=== PATIENT | female | born 1945 | race Asian ===

== ENCOUNTER 2018-05-03 06:23 | Day surgery (SDC) | payer OTHER ==
[2018-05-03] MEDS ORDERED: ONDANSETRON 4 MG INJ (07:00)
[2018-05-03] MEDS ORDERED: LIDOCAINE 2% (SDV) 5 ML INJ (07:00)
[2018-05-03] MEDS ORDERED: DEXAMETHASONE 4 MG/ML 1 ML INJ (07:00)
[2018-05-03] MEDS ORDERED: SOD CHLORIDE 0.9% 1,000 ML IV (09:00)
[2018-05-03] MEDS ORDERED: CEFAZOLIN 1 GM/50 ML (PMX) 50 ML IVPB (09:00)
[2018-05-03 12:42] LABS: ALANINE AMINOTRANSFERASE 38 IU/L (13-69); ALBUMIN 4.6 g/dl (3.3-4.9); ALBUMIN/GLOBULIN RATIO 1.27; ALKALINE PHOSPHATASE 85 IU/L (42-121); ANION GAP 14 (8-16); ASPARTATE AMINO TRANSFERASE 41 IU/L (15-46); BILIRUBIN,INDIRECT 0.6 mg/dl (0-1.1); BILIRUBIN,TOTAL 0.6 mg/dl (0.2-1.3); CARBON DIOXIDE 26 mmol/L (21-31); CHLORIDE 110 mmol/L (97-110); GLUCOSE 165 mg/dl (70-220); TOTAL PROTEIN 8.2 g/dl (6.1-8.1)
[2018-05-03 12:58] LABS: SODIUM 146 mmol/L (135-144)
[2018-05-03 12:59] LABS: BLOOD UREA NITROGEN 28 mg/dl (7-20); CALCIUM 10.1 mg/dl (8.4-10.2); CREATININE 1.02 mg/dl (0.44-1.00); POTASSIUM 4.3 mmol/L (3.5-5.1)
[2018-05-03] MEDS ORDERED: MEPERIDINE 25 MG INJ IV (13:00)
[2018-05-03] MEDS ORDERED: ALBUTEROL 0.083% (NEB) 2.5 MG/3 ML AMP HHN (13:00)
[2018-05-03] MEDS ORDERED: DIPHENHYDRAMINE 50 MG INJ IV (13:00)
[2018-05-03] MEDS ORDERED: MIDAZOLAM 1 MG/ML 2 ML INJ IV (13:00)
[2018-05-03] MEDS ORDERED: hydrALAzine 20 MG INJ IV (13:00)
[2018-05-03] MEDS ORDERED: LABETALOL HCL 20MG INJ IV (13:00)
[2018-05-03] MEDS ORDERED: EPHEDrine SULFATE 50 MG/5 ML SYG IV (13:00)
[2018-05-03] MEDS ORDERED: HYDROmorphONE 1 MG/5 ML IV SYRINGE IV ×3 (13:00)
[2018-05-03] MEDS ORDERED: OXYCODONE/ACETAMINOPHEN (5/325) TAB PO ×2 (13:00)
[2018-05-03] MEDS ORDERED: ONDANSETRON 4 MG INJ IV (13:00)
[2018-05-03] MEDS ORDERED: FENTAnyl 50 MCG/ML VIAL IV ×3 (13:00)
[2018-05-03] MEDS ORDERED: ROCURONIUM 50 MG INJ (13:33)
[2018-05-03] MEDS ORDERED: PROPOFOL 20 ML (13:33)
[2018-05-03] MEDS ORDERED: ISOSULFAN BLUE 1% 5 ML INJ SC (13:52)
[2018-05-03] MEDS: ISOSULFAN BLUE 1% 5 ML INJ SC ×2 (14:00)
[2018-05-03] MEDS ORDERED: CEFAZOLIN 1 GM INJ (14:44)
[2018-05-03] MEDS ORDERED: SUGAMMADEX SODIUM 200 MG/2 ML VIAL IV (14:45)
[2018-05-03] MEDS ORDERED: HYDROCODONE/APAP (7.5/325) TAB PO (15:00)
== END 2018-05-03 19:00 | disposition home or self-care (01) ==
LOC: SDS 06:23
DX: D05.11 Intraductal carcinoma in situ of right breast (principal); M19.90 Unspecified osteoarthritis, unspecified site; E11.9 Type 2 diabetes mellitus without complications; I10 Essential (primary) hypertension; E78.5 Hyperlipidemia, unspecified; Z91.040 Latex allergy status
CPT/HCPCS: 19301; 80053; 82962; 88307; 88331; 88342